=== PATIENT | female | born 1940 | race Caucasian/White ===

== ENCOUNTER 2017-05-02 09:19 | Emergency (ER) | payer MEDICARE ==
--- NOTE | 2017-05-02 09:46 | Emergency Department Record ---
History of Present Illness - General Chief complaint: Bite Insect/other Stated complaint: BUG BIT ON BACK Time Seen by Provider: 05/02/17 09:30 Source: Patient Mode of Arrival: Ambulatory Limitations: No limitations - History of Present Illness Initial comments: pt got a bite on her back on friday 96 hours ago from an unknown insect. it was red and has swelling which has improved. it was itchy. pt is worried that it was a tick bite. she did find a tick on her arm but it was not attached. complaint: Insect bite/sting Onset/Timin -: Days(s) Hx Tetanus Toxoid Vaccination: Yes Location: Back Consistency: Constant Improves with: None Worsens with: None Context: Other Associated symptoms: Denies other symptoms Treatments Prior to Arrival: None - Related Data Home Medications Medication Instructions Recorded Confirmed Last Taken Albuterol Sulfate [Ventolin Hfa] 2 puff INH ASDIR 04/28/16 05/02/17 04/28/16 11: 30 Beclomethasone Dipropionate [Qvar] 1 puff INH ASDIR 04/28/16 05/02/17 04/28/16 Budesonide/Formoterol Fumarate 2 puff INH ASDIR 04/28/16 05/02/17 04/27/16 [Symbicort 160-4.5 Mcg Inhaler] Montelukast Sodium [Singulair] 10 mg PO QHS 04/28/16 05/02/17 04/27/16 Previous Rx's Medication Instructions Recorded Cephalexin [Keflex] 500 mg PO QID #28 cap 05/02/17 Allergies Allergy/AdvReac Type Severity Reaction Status Date / Time No Known Drug Allergies Allergy Verified 04/28/16 15:58 Travel Screening - Travel/Exposure Within Last 30 Days Have you traveled within the last 30 days?: No Review of Systems Reviewed: No additional complaints except as noted below Constitutional: Reports: As per HPI. Denies: Chills, Fever, Malaise, Night sweats, Weakness, Weight change Eyes: Reports: As per HPI. Denies: Eye discharge, Eye pain, Photophobia, Vision change ENT: Reports: As per HPI. Denies: Congestion, Dental pain, Ear pain, Epistaxis , Hearing loss, Throat pain Respiratory: Reports: As per HPI. Denies: Cough, Dyspnea, Hemoptysis, Stridor, Wheezes Cardiovascular: Reports: As per HPI. Denies: Arrhythmia, Chest pain, Dyspnea on exertion, Edema, Murmurs, Orthopnea, Palpitations, Paroxysmal nocturnal dyspnea, Rheumatic Fever, Syncope Endocrine: Reports: As per HPI. Denies: Fatigue, Heat or cold intolerance, Polydipsia, Polyuria Gastrointestinal: Reports: As per HPI. Denies: Abdominal pain, Constipation, Diarrhea, Hematemesis, Hematochezia, Melena, Nausea, Vomiting Genitourinary: Reports: As per HPI. Denies: Abnormal menses, Discharge, Dyspareunia, Dysuria, Frequency, Hematuria, Incontinence, Retention, Urgency Musculoskeletal: Reports: As per HPI. Denies: Arthralgia, Back pain, Gout, Joint swelling, Myalgia, Neck pain Skin: Reports: As per HPI. Denies: Bruising, Change in color, Change in hair/ nails, Lesions, Pruritus, Rash Neurological: Reports: As per HPI. Denies: Abnormal gait, Confusion, Headache, Numbness, Paresthesias, Seizure, Tingling, Tremors, Vertigo, Weakness Psychiatric: Reports: As per HPI. Denies: Anxiety, Auditory hallucinations, Depression, Homicidal thoughts, Suicidal thoughts, Visual hallucinations Hematological/Lymphatic: Reports: As per HPI. Denies: Anemia, Blood Clots, Easy bleeding, Easy bruising, Swollen glands Past Medical History - SOCIAL HISTORY Smoking Status: Never smoker - RESPIRATORY Hx Respiratory Disorders: Yes Hx Asthma: Yes - CARDIOVASCULAR Hx Cardio Disorders: No - NEURO Hx Neuro Disorders: No - GI Hx GI Disorders: No - Hx Genitourinary Disorders: No - ENDOCRINE Hx Endocrine Disorders: No - MUSCULOSKELETAL Hx Musculoskeletal Disorders: No - PSYCH Hx Psych Problems: No - HEMATOLOGY/ONCOLOGY Hx Hematology/Oncology Disorders: No Family Medical History Any Significant Family History?: No Physical Exam - General General Appearance: Alert, Oriented x3, Cooperative, No acute distress - Head Head exam: Normal inspection - Eye Eye exam: Normal appearance, PERRL, EOMI Pupils: Normal accommodation - ENT ENT exam: Normal exam, Mucous membranes moist, Normal external ear exam, Normal orophraynx Ear exam: Normal external inspection. negative: External canal tenderness Nasal Exam: Normal inspection. negative: Discharge, Sinus tenderness Mouth exam: Normal external inspection, Tongue normal Teeth exam: Normal inspection. negative: Dental caries Throat exam: Normal inspection. negative: Tonsillar erythema, Tonsillar exudate - Neck Neck exam: Normal inspection, Full ROM. negative: Tenderness - Respiratory Respiratory exam: Normal lung sounds bilaterally. negative: Respiratory distress - Cardiovascular Cardiovascular Exam: Regular rate, Normal rhythm, Normal heart sounds - GI/Abdominal GI/Abdominal exam: Soft, Normal bowel sounds. negative: Tenderness - Rectal Rectal exam: Deferred - exam: Deferred - Extremities Extremities exam: Normal inspection, Full ROM, Normal capillary refill. negative: Tenderness - Back Back exam: Reports: Normal inspection, Full ROM. Denies: Muscle spasm, Rash noted, Tenderness - Neurological Neurological exam: Alert, CN II-XII intact, Normal gait, Oriented X3 - Psychiatric Psychiatric exam: Normal affect, Normal mood - Skin Skin exam: Dry, Intact, Normal color, Warm Type of lesion: Bite/sting Distribution of rash: Back Course Vital Signs 05/02/17 09:22 Temperature 98.0 F Pulse Rate 93 H Respiratory 18 Rate Blood Pressure 118/96 Pulse Ox 98 - Reevaluation(s) Reevaluation #1: 05/02/17 09:46 pt was reassured that 1. it was unlikely to be a tick bite 2. that if it was it would be very unlikely the deer tick that carries lyme 3. she is out of the 72hr window for prophylaxis anyhow. it is mildly red and i will cover for secondary infection 05/02/17 09:48 Disposition Disposition: Discharge Clinical Impression: Insect bite Qualifiers: Encounter type: initial encounter Qualified Code(s): W57.XXXA - Bitten or stung by nonvenomous insect and other nonvenomous arthropods, initial encounter Disposition: Home, Self-Care Condition: (1) Good Instructions: Insect Bite or Sting (ED) Additional Instructions: follow up with family doctor. return sooner if worse. Prescriptions: Cephalexin [Keflex] 500 mg PO QID #28 cap Forms: Patient Portal Access Quality - Quality Measures Quality Measures: N/A - Blood Pressure Screening Blood Pressure Classification: Hypertensive Reading Systolic Measurement: 118 Diastolic Measurement: 96 Screening for High Blood Pressure: < Normal BP, F/U Not Required > [G8783] Normal BP Follow-up Interventions: No follow-up required
== END 2017-05-02 09:59 | disposition home or self-care (01) ==
LOC: ER 09:19
DX: S20.462A Insect bite (nonvenomous) of left back wall of thorax, initial encounter (principal); W57.XXXA Bitten or stung by nonvenomous insect and other nonvenomous arthropods, initial encounter
CPT/HCPCS: 99282

== ENCOUNTER 2017-06-15 14:41 | Emergency (ER) | payer MEDICARE ==
--- NOTE | 2017-06-15 15:21 | Emergency Department Record ---
History of Present Illness - General Chief Complaint: Laceration(s) Stated Complaint: LACERATION ON LEFT HAND Time Seen by Provider: 06/15/17 14:55 Source: Patient, Family Mode of Arrival: Ambulatory Limitations: No limitations - History of Present Illness Initial Commments: 77 yo female presents with a laceration to the left hand. She was cleaning out the inside of a drinking glass and sliced her hand. The glass was not broken and there were no loose pieces of glass. No numbness, tingling, weakness or loss of function. Unknown last tetanus. -: Hour(s) Extremity Location: Left: Hand Place: Home Context: Accidental, Sharp object use Associated Symptoms: None - [place] Coma Scale Eye Response: (4) Open spontaneously Motor Response: (6) Obeys commands Verbal Response: (5) Oriented Berta Total: 15 - Related Data Hx Tetanus Toxoid Vaccination: Yes Allergies Allergy/AdvReac Type Severity Reaction Status Date / Time No Known Drug Allergies Allergy Verified 06/15/17 15:00 Review of Systems Constitutional: Denies: Chills, Fever, Malaise, Weakness Eyes: Denies: Eye discharge ENT: Denies: Congestion Respiratory: Denies: Cough Cardiovascular: Denies: Chest pain Endocrine: Denies: Fatigue Gastrointestinal: Denies: Abdominal pain, Diarrhea, Nausea, Vomiting Genitourinary: Denies: Dysuria, Urgency Musculoskeletal: Denies: Arthralgia, Back pain, Myalgia Skin: Reports: As per HPI, Other Neurological: Denies: Confusion, Headache, Numbness, Tremors, Weakness Psychiatric: Denies: Anxiety Hematological/Lymphatic: Denies: Blood Clots, Easy bleeding, Easy bruising, Swollen glands Past Medical History - SOCIAL HISTORY Smoking Status: Never smoker - RESPIRATORY Hx Respiratory Disorders: Yes Hx Asthma: Yes - CARDIOVASCULAR Hx Cardio Disorders: No - NEURO Hx Neuro Disorders: No - GI Hx GI Disorders: No - Hx Genitourinary Disorders: No - ENDOCRINE Hx Endocrine Disorders: No - MUSCULOSKELETAL Hx Musculoskeletal Disorders: No - PSYCH Hx Psych Problems: No - HEMATOLOGY/ONCOLOGY Hx Hematology/Oncology Disorders: No Physical Exam - General General Appearance: Alert, Oriented x3, Cooperative, No acute distress Limitations: No limitations - Head Head exam: Normal inspection - Eye Eye exam: Normal appearance - ENT ENT exam: Normal exam Ear exam: Normal external inspection Nasal Exam: Normal inspection Mouth exam: Normal external inspection Teeth exam: Normal inspection - Neck Neck exam: Normal inspection - Cardiovascular Cardiovascular Exam: Regular rate, Normal rhythm, Normal heart sounds Peripheral Pulses: 1+: Radial (L) - Rectal Rectal exam: Deferred - exam: Deferred - Extremities Image of Hand: 1 - clean, linear 3cm laceration, no FB, no visible tendon injury - Neurological Neurological exam: Alert, Oriented X3 - Psychiatric Psychiatric exam: Normal affect, Normal mood - Skin Type of lesion: Laceration Course - Reevaluation(s) Reevaluation #1: PROCEDURE Laceration repair Lidocaine 1% local Betadine Prep Shur Clens and NS wash with irrigation Prolene 4-0 Suture #8 Irrigation copiously with NS 06/15/17 14:59 Disposition Disposition: Discharge Clinical Impression: Hand laceration Qualifiers: Encounter type: initial encounter Foreign body presence: without foreign body Laterality: left Qualified Code(s): S61.412A - Laceration without foreign body of left hand, initial encounter Disposition: Home, Self-Care Condition: (1) Good Instructions: Laceration (ED) Additional Instructions: Keep dry and clean Return immediately if red, warm, swollen or any new concerns Return in 8 days for suture removal Forms: Patient Portal Access Time of Disposition: 15:22 Quality - Quality Measures Quality Measures: N/A - Blood Pressure Screening Does Patient Have Any of the Following: No Systolic Measurement: ~ Screening for High Blood Pressure: < Pre-Hypertensive BP, F/U Documented > [ G8950] Pre-Hypertensive Follow-up Interventions: Referral to alternative/primary care provider.
[2017-06-15] MEDS: Diph,Pert(Acell),Tet Vac 0.5 ML SYR IM ONE (15:28)
== END 2017-06-15 15:34 | disposition home or self-care (01) ==
LOC: ER 14:41
DX: S61.412A Laceration without foreign body of left hand, initial encounter (principal); W25.XXXA Contact with sharp glass, initial encounter; Y93.G1 Activity, food preparation and clean up; Y92.000 Kitchen of unspecified non-institutional (private) residence as the place of occurrence of the external cause
CPT/HCPCS: 12002; 90715; 96372; 99283

== ENCOUNTER 2017-06-24 08:45 | Emergency (ER) | payer MEDICARE ==
--- NOTE | 2017-06-24 09:00 | Emergency Department Record ---
History of Present Illness - General Chief complaint: Extremity Problem Stated complaint: HAND INFECTION Time Seen by Provider: 06/24/17 08:49 Source: Patient, Family Mode of Arrival: Ambulatory Limitations: No limitations - History of Present Illness Initial comments: 77 yo female presents with concerns about the healing of her hand laceration. She originally cut her hand on the sharp edge of a glass on 06/15. She was seen in the [facility] care on 06/17 and started on Keflex for redness. No fevers. She has full ROM. No current drainage. No numbness or tingling. MD Complaint: Extremity pain, Extremity swelling -: Days(s) (9) Location: Left Radiation: None Quality: Aching Consistency: Constant Improves with: Nothing Worsens with: Nothing Associated Symptoms: Rash - Related Data Previous Rx's Medication Instructions Recorded Clindamycin HCl 300 mg PO QID #28 capsule 06/24/17 Allergies Allergy/AdvReac Type Severity Reaction Status Date / Time No Known Drug Allergies Allergy Unverified 06/17/17 13:58 Review of Systems Constitutional: Denies: Chills, Fever, Malaise, Weakness Eyes: Denies: Eye discharge ENT: Denies: Congestion, Throat pain Respiratory: Denies: Cough Cardiovascular: Denies: Chest pain, Syncope Endocrine: Denies: Fatigue Gastrointestinal: Denies: Abdominal pain, Diarrhea, Nausea, Vomiting Genitourinary: Denies: Dysuria, Urgency Musculoskeletal: Denies: Arthralgia, Back pain, Myalgia Skin: Reports: As per HPI, Change in color, Rash. Denies: Bruising Neurological: Denies: Confusion, Headache, Numbness Psychiatric: Denies: Anxiety Hematological/Lymphatic: Denies: Blood Clots, Easy bleeding, Easy bruising Past Medical History - SOCIAL HISTORY Smoking Status: Never smoker - RESPIRATORY Hx Respiratory Disorders: Yes Hx Asthma: Yes - CARDIOVASCULAR Hx Cardio Disorders: No - NEURO Hx Neuro Disorders: No - GI Hx GI Disorders: No - Hx Genitourinary Disorders: No - ENDOCRINE Hx Endocrine Disorders: No - MUSCULOSKELETAL Hx Musculoskeletal Disorders: No - PSYCH Hx Psych Problems: No - HEMATOLOGY/ONCOLOGY Hx Hematology/Oncology Disorders: No Physical Exam - General General Appearance: Alert, Oriented x3, Cooperative, No acute distress Limitations: No limitations - Head Head exam: Normal inspection - Eye Eye exam: Normal appearance, PERRL - ENT ENT exam: Normal exam Ear exam: Normal external inspection Nasal Exam: Normal inspection Mouth exam: Normal external inspection - Neck Neck exam: Normal inspection - Cardiovascular Cardiovascular Exam: Regular rate, Normal rhythm, Normal heart sounds Peripheral Pulses: 2+: Radial (L) - Rectal Rectal exam: Deferred - exam: Deferred - Extremities Extremities exam: Full ROM, Normal capillary refill Image of Hand: 1 - incision is intact, no pus, minimal erythema, no swelling, full extension of the fingers, full flexion. - Neurological Neurological exam: Alert, Oriented X3. negative: Motor sensory deficit, Normal gait - Psychiatric Psychiatric exam: Normal affect, Normal mood. negative: Agitated, Anxious - Skin Skin exam: Dry, Erythema, Intact, Warm Course - Reevaluation(s) Reevaluation #1: The incision is healing with intact wound margins No pus expressed The area was cleaned with Shurclens and and scabs or superficial debris removed Very faint erythema The patient will be changed to Clindamycin and follow up on Friday in the ED for a recheck She is to return sooner if worse or any new concerns 06/24/17 09:08 Disposition Disposition: Discharge Clinical Impression: Hand laceration Qualifiers: Encounter type: initial encounter Laterality: left Cellulitis Qualifiers: Site of cellulitis: extremity Site of cellulitis of extremity: upper extremity Laterality: left Qualified Code(s): L03.114 - Cellulitis of left upper limb Disposition: Home, Self-Care Condition: (1) Good Instructions: Cellulitis (ED) Additional Instructions: Return if you have fever, increased redness, pain, swelling, pus or concerns Follow up on Friday in the ED for wound evaluation for possible suture removal Prescriptions: Clindamycin HCl 300 mg PO QID #28 capsule Forms: Patient Portal Access Time of Disposition: 09:11 Quality - Quality Measures Quality Measures: N/A - Blood Pressure Screening Does Patient Have Any of the Following: No Blood Pressure Classification: Hypertensive Reading Systolic Measurement: 146 Diastolic Measurement: 79 Screening for High Blood Pressure: < Pre-Hypertensive BP, F/U Documented > [ G8950] Pre-Hypertensive Follow-up Interventions: Referral to alternative/primary care provider.
[2017-06-24] MEDS ORDERED: CLINDAMYCIN 150 MG CAP PO ONE (09:06)
== END 2017-06-24 09:26 | disposition home or self-care (01) ==
LOC: ER 08:45
DX: L03.114 Cellulitis of left upper limb (principal)
CPT/HCPCS: 99282

== ENCOUNTER 2017-06-27 08:20 | Emergency (ER) | payer MEDICARE ==
--- NOTE | 2017-06-27 08:46 | Emergency Department Record ---
History of Present Illness - General Chief Complaint: Suture removal Stated Complaint: SUTURE REMOVAL Time Seen by Provider: 06/27/17 08:24 Source: Patient, Old records reviewed Mode of arrival: Ambulatory Limitations: No limitations - History of Present Illness Initial Comments: The patient is here for suture removal. She sustained a L dorsal hand laceration 12 days ago and was sutured here. The patient did develop a hand cellulitis and is still on Clindamycin which was prescribed from the . There also has been the development of some dorsal hand swelling which is presumed to be from the infection. The patient states the infection is much improved. Complaint: Suture/staple removal Onset/Timin -: Days(s) Initial Visit For: Laceration Returns Today for: Staple/stitch removal Symptoms Since Prior Visit: No new symptoms Associated Symptoms: None - Related Data Previous Rx's Medication Instructions Recorded Clindamycin HCl 300 mg PO QID #28 capsule 06/24/17 Allergies Allergy/AdvReac Type Severity Reaction Status Date / Time No Known Drug Allergies Allergy Unverified 06/17/17 13:58 Travel Screening - Travel/Exposure Within Last 30 Days Have you traveled within the last 30 days?: No - Travel/Exposure Within Last Year Have you traveled outside the [place] in the last year?: No - Additonal Travel Details Have you been exposed to anyone with a communicable illness?: No - Travel Symptoms Symptom Screening: None Review of Systems Constitutional: Denies: Chills, Fever Past Medical History - SOCIAL HISTORY Smoking Status: Never smoker Alcohol Use: None Drug Use: None - RESPIRATORY Hx Respiratory Disorders: Yes Hx Asthma: Yes - CARDIOVASCULAR Hx Cardio Disorders: No - NEURO Hx Neuro Disorders: No - GI Hx GI Disorders: No - Hx Genitourinary Disorders: No - ENDOCRINE Hx Endocrine Disorders: No - MUSCULOSKELETAL Hx Musculoskeletal Disorders: No - PSYCH Hx Psych Problems: No - HEMATOLOGY/ONCOLOGY Hx Hematology/Oncology Disorders: No Family Medical History Any Significant Family History?: No Physical Exam - General General Appearance: Alert, Cooperative, No acute distress - Extremities Extremities exam: Full ROM, Tenderness (There is tenderness to the proximal dorsal hand proximal to the hand laceration. The laceration appears healed and without tenderness or erythema.). negative: Normal inspection Image of Hand: 1 - Area of edema and mild tenderness but no redness or warmth. 2 - Healed hand lac. Course Vital Signs 06/27/17 08:21 Temperature 97.8 F Pulse Rate 90 Respiratory 18 Rate Blood Pressure 148/59 Pulse Ox 97 - Reevaluation(s) Reevaluation #1: The patient is doing very well at this time. Her sutures were removed and steri strips applied. She is instructed to see her PCP early next week for recheck of the hand. 06/27/17 9:00 Medical Decision Making - Data Complexity MDM Data: X-Ray Ordered and/or Reviewed - Radiology Data Radiology results: Report reviewed (L hand: Arthritis, with no acute changes.) Disposition Disposition: Discharge Clinical Impression: Encounter for removal of sutures Disposition: Home, Self-Care Condition: (1) Good Instructions: Stitches Removal (ED) Additional Instructions: Continue the oral antibiotics as directed. Please see your PCP early next week for recheck. Return to the ER for any problems, pain, or increased swelling. Forms: Patient Portal Access Time of Disposition: 09:30 Quality - Quality Measures Quality Measures: N/A - Blood Pressure Screening View Details: Yes Does Patient Have Any of the Following: No Blood Pressure Classification: Pre-Hypertensive BP Reading Systolic Measurement: 135 Diastolic Measurement: 71 Screening for High Blood Pressure: < Pre-Hypertensive BP, F/U Documented > [ G8950] Pre-Hypertensive Follow-up Interventions: Referral to alternative/primary care provider.
--- NOTE | 2017-06-27 10:36 | Emergency Department Record ---
History of Present Illness - General Chief Complaint: Suture removal Stated Complaint: SUTURE REMOVAL Time Seen by Provider: 06/27/17 08:24 Source: Patient, Old records reviewed Mode of arrival: Ambulatory Limitations: No limitations - History of Present Illness Onset/Timin -: Days(s) Initial Visit For: Laceration Returns Today for: Staple/stitch removal Symptoms Since Prior Visit: No new symptoms Associated Symptoms: None - Related Data Previous Rx's Medication Instructions Recorded Clindamycin HCl 300 mg PO QID #28 capsule 06/24/17 Allergies Allergy/AdvReac Type Severity Reaction Status Date / Time No Known Drug Allergies Allergy Unverified 06/17/17 13:58 Travel Screening - Travel/Exposure Within Last 30 Days Have you traveled within the last 30 days?: No - Travel/Exposure Within Last Year Have you traveled outside the [place] in the last year?: No - Additonal Travel Details Have you been exposed to anyone with a communicable illness?: No - Travel Symptoms Symptom Screening: None Review of Systems Constitutional: Denies: Chills, Fever Past Medical History - SOCIAL HISTORY Smoking Status: Never smoker Alcohol Use: None Drug Use: None - RESPIRATORY Hx Respiratory Disorders: Yes Hx Asthma: Yes - CARDIOVASCULAR Hx Cardio Disorders: No - NEURO Hx Neuro Disorders: No - GI Hx GI Disorders: No - Hx Genitourinary Disorders: No - ENDOCRINE Hx Endocrine Disorders: No - MUSCULOSKELETAL Hx Musculoskeletal Disorders: No - PSYCH Hx Psych Problems: No - HEMATOLOGY/ONCOLOGY Hx Hematology/Oncology Disorders: No Family Medical History Any Significant Family History?: No Physical Exam - General Limitations: No limitations - Extremities Image of Hand: 1 - Healed laceration. Error in location from original chart today. Course Vital Signs 06/27/17 06/27/17 08:21 09:37 Temperature 97.8 F 97.8 F Pulse Rate 90 88 Respiratory 18 16 Rate Blood Pressure 148/59 135/71 Pulse Ox 97 95 Disposition Clinical Impression: Encounter for removal of sutures Disposition: Home, Self-Care Condition: (1) Good Instructions: Stitches Removal (ED) Additional Instructions: Continue the oral antibiotics as directed. Please see your PCP early next week for recheck. Return to the ER for any problems, pain, or increased swelling. Forms: Patient Portal Access Quality - Quality Measures Quality Measures: N/A - Blood Pressure Screening View Details: Yes Does Patient Have Any of the Following: No Blood Pressure Classification: Pre-Hypertensive BP Reading Systolic Measurement: 135 Diastolic Measurement: 71 Screening for High Blood Pressure: < Pre-Hypertensive BP, F/U Documented > [ G8950] Pre-Hypertensive Follow-up Interventions: Referral to alternative/primary care provider.
--- NOTE | 2017-06-28 08:10 | RADIOLOGY REPORT ---
EXAM: HAND, LEFT 3 VIEWS HISTORY: INJURY. TECHNIQUE: Three views of the left hand were performed. FINDINGS: Severe osteopenia. There is severe degenerative change of the first carpometacarpal joint space. There is moderate degenerative change of the proximal and distal interphalangeal joint space of all digits. No evidence of fracture. IMPRESSION: 1. SEVERE DEGENERATIVE CHANGE OF THE FIRST CARPOMETACARPAL JOINT SPACE. MODERATE DEGENERATIVE CHANGE OF THE PROXIMAL AND DISTAL INTERPHALANGEAL JOINT SPACES. 2. SEVERE UNDERLYING OSTEOPENIA. JOB NUMBER: [id number] [facility]
== END 2017-06-27 09:37 | disposition home or self-care (01) ==
LOC: ER 08:20
DX: G89.11 Acute pain due to trauma (principal); M79.642 Pain in left hand; Z48.02 Encounter for removal of sutures
CPT/HCPCS: 99283

== ENCOUNTER 2017-12-20 10:20 | Observation (INO) | payer MEDICARE ==
[2017-12-20] MEDS ORDERED: IPRATROPIUM/ALBUTEROL (0.5MG/3MG) NEB INH ONE (10:37)
[2017-12-20] MEDS ORDERED: METHYLPREDNISOLONE PF 125MG/VIAL IVP ONE (10:39)
[2017-12-20 11:02] LABS: HEMATOCRIT 43.7 % (35.0-47.0); MEAN CELL VOLUME 88.1 fl (81-97); MEAN CORPUSCULAR HEMOGLOBIN 28.2 pg (27-33); MEAN PLATELET VOLUME 9.6 fl (7.4-10.4); PLATELET COUNT 200 K/uL (130-400); RED BLOOD COUNT 4.96 M/uL (3.80-5.40); RED CELL DISTRIBUTION WIDTH 13.6 % (11.5-14.5); WHITE BLOOD COUNT W/O DIFF 6.3 K/uL (4.2-12.2)
[2017-12-20 11:11] LABS: BLOOD UREA NITROGEN 12 mg/dL (8-23); CREATININE 0.5 mg/dL (0.5-0.9); EST GLOMERULAR FILTRATION RATE > 60 mL/min
--- NOTE | 2017-12-20 11:12 | Emergency Department Record ---
History of Present Illness - General Chief Complaint: Shortness of breath Stated Complaint: JAM Time Seen by Provider: 12/20/17 10:26 Source: Patient Mode of Arrival: Ambulatory Limitations: No limitations - History of Present Illness Initial Comments: The patient is here due to a 4-5 day hx of cough, congestion and now SOB. She does have a hx of asthma and feels the infection has triggered her asthma. The patient has had to stay in the hospital once for her asthma. She denies any CP, fever, chills, or sputum production. MD Complaint: Cough, Shortness of breath Onset/Timin -: Days(s) Improves With: Nothing Worsens With: Nothing Known History Of: Asthma Associated Symptoms: Cough Treatments Prior to Arrival: Bronchodilator - Related Data Allergies Allergy/AdvReac Type Severity Reaction Status Date / Time No Known Drug Allergies Allergy Verified 12/20/17 10:32 Travel Screening - Travel/Exposure Within Last 30 Days Have you traveled within the last 30 days?: Yes Location Detail:: [place] - Travel Symptoms Symptom Screening: None Review of Systems Constitutional: Denies: Chills, Fever ENT: Reports: Congestion Respiratory: Reports: Cough, Dyspnea. Denies: Hemoptysis Cardiovascular: Denies: Chest pain Past Medical History - SOCIAL HISTORY Smoking Status: Never smoker Alcohol Use: None Drug Use: None - RESPIRATORY Hx Respiratory Disorders: Yes Hx Asthma: Yes - CARDIOVASCULAR Hx Cardio Disorders: No - NEURO Hx Neuro Disorders: No - GI Hx GI Disorders: No - Hx Genitourinary Disorders: No - ENDOCRINE Hx Endocrine Disorders: No - MUSCULOSKELETAL Hx Musculoskeletal Disorders: No - PSYCH Hx Psych Problems: No - HEMATOLOGY/ONCOLOGY Hx Hematology/Oncology Disorders: No Family Medical History Any Significant Family History?: No Physical Exam - General General Appearance: Alert, Oriented x3, Cooperative, Mild distress - Head Head exam: Atraumatic, Normocephalic, Normal inspection - Eye Eye exam: Normal appearance, PERRL - ENT Throat exam: Normal inspection. negative: Tonsillar erythema, Tonsillar exudate - Neck Neck exam: Normal inspection, Full ROM. negative: Tenderness - Respiratory Respiratory exam: Wheezes (lower lobes only.). negative: Normal lung sounds bilaterally, Accessory muscle use, Chest wall tenderness, Decreased breath sounds, Rales, Respiratory distress, Rhonchi - Cardiovascular Cardiovascular Exam: Regular rate, Normal rhythm, Normal heart sounds - GI/Abdominal GI/Abdominal exam: Soft, Normal bowel sounds. negative: Tenderness - Extremities Extremities exam: Normal inspection, Full ROM, Normal capillary refill. negative: Tenderness Course Vital Signs 12/20/17 12/20/17 10:25 11:02 Temperature 98.3 F Pulse Rate 113 H 121 H Respiratory 20 19 Rate Blood Pressure 146/86 Pulse Ox 96 97 - Reevaluation(s) Reevaluation #1: The patient is doing a little better but is still coughing and has tight lungs at times. On exam her lungs still do have some wheezes at the bases but better aeration. The patient's RA O2 saturations are running 90-91% at times but then does improve to 96%. 12/20/17 12:00 Reevaluation #2: The patient is doing better but is still coughing with wheezes. Her O2 sats are now 96-97% on 2 liters of O2. Due to the persistent wheezes and rhonchi we will admit the patient overnight here at [facility]. I did discuss the case with Dr. Clarke and he does accept the patient to the hospital 12/20/17 13:51 Medical Decision Making - Data Complexity MDM Data: Labs Ordered and/or Reviewed, X-Ray Ordered and/or Reviewed, EKG Ordered and/or Reviewed - Lab Data Result diagrams: 12/20/17 10:45 12/20/17 10:50 - EKG Data EKG: No Acute Changes (ST at 108, Anteroseptal infarct, age ?.) - Radiology Data Radiology results: Report reviewed (CXR: small R effusion, O/W neg.) Disposition Disposition: Admit Clinical Impression: Asthmatic bronchitis with acute exacerbation Qualifiers: Asthma severity: unspecified severity Asthma persistence: unspecified Qualified Code(s): J45.901 - Unspecified asthma with (acute) exacerbation Disposition: Still a Patient at [facility] Decision to Admit: Admit from ER Decision to Admit Date: 12/20/17 Decision to Admit Time: 13:53 Accepting Physician: Vince Time Discussed w/Accepting Physician: 13:53 Condition: (2) Stable Time of Disposition: 13:53 Quality - Quality Measures Quality Measures: N/A - Blood Pressure Screening View Details: Yes Does Patient Have Any of the Following: No Blood Pressure Classification: Pre-Hypertensive BP Reading Systolic Measurement: 146 Diastolic Measurement: 86 Screening for High Blood Pressure: < Pre-Hypertensive BP, F/U Documented > [ G8950] Pre-Hypertensive Follow-up Interventions: Referral to alternative/primary care provider.
[2017-12-20 11:14] LABS: GLUCOSE,RANDOM 142 mg/dL (74-109)
[2017-12-20 11:17] LABS: CREATINE PHOSPHOKINASE 126 U/L (26-192)
[2017-12-20] MEDS ORDERED: 0.9 % SODIUM CHLORIDE 1,000 ML BAG IV ONE (11:25)
[2017-12-20] MEDS ORDERED: PROMETHAZINE W/CODEINE 10ML UD PO ONE (11:32)
[2017-12-20] MEDS ORDERED: LEVOFLOXACIN 500 MG TABLET PO ONE (11:45)
[2017-12-20 11:54] LABS: INFLUENZA A NEGATIVE (NEGATIVE); INFLUENZA B NEGATIVE (NEGATIVE)
[2017-12-20] MEDS ORDERED: ALBUTEROL SULFATE (0.083%) 2.5 MG/3 ML NEB INH ONE ×2 (11:56→12:44)
[2017-12-20 12:02] LABS: CKMB 2.8 ng/mL (<3.77)
[2017-12-20] MEDS ORDERED: ACETAMINOPHEN 500 MG TABLET PO PRN (15:03)
[2017-12-20] MEDS: IPRATROPIUM/ALBUTEROL (0.5MG/3MG) NEB INH SCH ×4 (15:10→21:22)
--- NOTE | 2017-12-20 21:06 | History & Physical ---
History of Present Illness - Date of Service Date of Service for History & Physical: 12/21/17 - History of Present Illness Admitting Diagnosis: 1. Acute Asthmatic Bronchitis with Acute Exacerbation. History of Present Illness: Mrs. Miller is a 77 y/o female presenting with a 5 day history of congestion non-productive cough and increasing difficulty breathing. She has not had any fevers, chills or headaches. The patient has a history of mild intermittent asthma and reports infrequent exacerbations requiring bronchodilator use. She denies sick contacts or recent travel and she has had her seasonal influenza vaccine. On admission to the ED the patient was noted to be mildly hypoxic with saturations in the low 90s to high 80s. She has four respiratory treatments but still appear to have some mild respiratory distress. She denied chest pain, headaches, fever or chills. Travel Screening - Travel/Exposure Within Last 30 Days Have you traveled within the last 30 days?: Yes Location Detail:: [place] - Travel/Exposure Within Last Year Have you traveled outside the [place] in the last year?: No - Additonal Travel Details Have you been exposed to anyone with a communicable illness?: No - Travel Symptoms Symptom Screening: None Review of Systems Constitutional: Denies: Chills, Fever ENT: Reports: Congestion Respiratory: Reports: Cough, Dyspnea. Denies: Hemoptysis Cardiovascular: Denies: Chest pain Past Medical History - SOCIAL HISTORY Smoking Status: Never smoker Alcohol Use: None Drug Use: None - RESPIRATORY Hx Respiratory Disorders: Yes Hx Asthma: Yes - CARDIOVASCULAR Hx Cardio Disorders: No - NEURO Hx Neuro Disorders: No - GI Hx GI Disorders: No - Hx Genitourinary Disorders: No - ENDOCRINE Hx Endocrine Disorders: No - MUSCULOSKELETAL Hx Musculoskeletal Disorders: No - PSYCH Hx Psych Problems: No - HEMATOLOGY/ONCOLOGY Hx Hematology/Oncology Disorders: No Family Medical History Any Significant Family History?: No H&P Meds/Allergies - Allergies Allergies: Allergies Allergy/AdvReac Type Severity Reaction Status Date / Time No Known Drug Allergies Allergy Verified 12/20/17 10:32 - Active Medications Active Medications: Current Medications Acetaminophen (Tylenol 500mg Tab) 650 mg PO Q6H PRN PRN Reason: PAIN/TEMP Last Admin: 12/20/17 20:52 Dose: 650 mg Albuterol/Ipratropium (Duoneb) 3 ml INH RESP.Q4H.[place] Last Admin: 12/20/17 17:08 Dose: 3 ml Levofloxacin (Levaquin Tab) 750 mg PO Q48H [facility] Methylprednisolone Sodium Succinate (Solu-Medrol) 60 mg IVP DAILY [facility] Physical Exam - Vital Signs Vital Signs: Vital Signs - Last 24 Hrs Temp Pulse Pulse Resp BP Pulse Ox 12/20/17 18:16 95 12/20/17 17:10 99 H 17 95 12/20/17 15:28 16 12/20/17 15:03 97.9 F 103 H 18 125/68 96 - General General Appearance: Alert, Oriented x3, Cooperative, Mild distress Limitations: No limitations - Head Head exam: Atraumatic, Normocephalic, Normal inspection - Eye Eye exam: Normal appearance, PERRL - ENT Throat exam: Normal inspection. negative: Tonsillar erythema, Tonsillar exudate - Neck Neck exam: Normal inspection, Full ROM. negative: Tenderness - Respiratory Respiratory exam: Wheezes (lower lobes only.). negative: Normal lung sounds bilaterally, Accessory muscle use, Chest wall tenderness, Decreased breath sounds, Rales, Respiratory distress, Rhonchi - Cardiovascular Cardiovascular Exam: Regular rate, Normal rhythm, Normal heart sounds - GI/Abdominal GI/Abdominal exam: Soft, Normal bowel sounds. negative: Tenderness - Extremities Extremities exam: Normal inspection, Full ROM, Normal capillary refill. negative: Tenderness Results - Labs Result Diagrams: 12/20/17 10:45 12/20/17 10:50 VTE H&P Assessment - Risk for VTE Risk for VTE: No Risk Level: Very Low Risk Assessment Date: 12/21/17 Risk Assessment Time: 09:39 VTE Orders Placed or Will Be Placed: No VTE Reason for No Prophylaxis: Not Indicated (patient ambulatory and has no risk factors ) Plan - Detailed Diagnosis and Plan (1) Asthmatic bronchitis with acute exacerbation Current Visit: Yes Status: Acute Qualifiers: Asthma severity: unspecified severity Asthma persistence: unspecified Qualified Code(s): J45.901 - Unspecified asthma with (acute) exacerbation Base Code: J45.901 - UNSPECIFIED ASTHMA WITH (ACUTE) EXACERBATION Comment: 3/4 - chest xray negative, labs WNL - oxygen to maintain sats > 92% - bronchodilator therapy Q4H, solumderol 60mg daily. Change to PO prednisone at discharge. - Levaquin 500mg daily x 5 days total. - peak flow measure (2) Full code status Current Visit: Yes Status: Acute Base Code: Z78.9 - OTHER SPECIFIED HEALTH STATUS - Disposition D/C home tomorrow if improvement in symptoms.
[2017-12-21] MEDS: IPRATROPIUM/ALBUTEROL (0.5MG/3MG) NEB INH SCH (05:52)
[2017-12-21] MEDS ORDERED: METHYLPREDNISOLONE PF 125MG/VIAL IVP SCH (10:00)
--- NOTE | 2017-12-21 11:49 | Discharge Summary ---
Providers Discharge Summary Date: 12/21/17 Date of admission: 12/20/17 14:47 Attending physician: MITESH DOTY Physical Exam - Vital Signs Vital Signs: Vital Signs - Last 24 Hrs Temp Pulse Pulse Resp BP Pulse Ox 12/21/17 06:41 97.7 F 92 H 18 135/68 97 12/21/17 05:52 86 20 98 12/20/17 21:22 88 20 98 12/20/17 21:00 83 18 12/20/17 18:16 95 12/20/17 17:10 99 H 17 95 12/20/17 15:28 16 12/20/17 15:03 97.9 F 103 H 18 125/68 96 - General General Appearance: Alert, Oriented x3, Cooperative, Mild distress Limitations: No limitations - Head Head exam: Atraumatic, Normocephalic, Normal inspection - Eye Eye exam: Normal appearance, PERRL - ENT Throat exam: Normal inspection. negative: Tonsillar erythema, Tonsillar exudate - Neck Neck exam: Normal inspection, Full ROM. negative: Tenderness - Respiratory Respiratory exam: negative: Normal lung sounds bilaterally, Accessory muscle use , Chest wall tenderness, Decreased breath sounds, Rales, Respiratory distress, Rhonchi - Cardiovascular Cardiovascular Exam: Regular rate, Normal rhythm, Normal heart sounds - GI/Abdominal GI/Abdominal exam: Soft, Normal bowel sounds. negative: Tenderness - Extremities Extremities exam: Normal inspection, Full ROM, Normal capillary refill. negative: Tenderness Hospitalization - Hospitalization Admission Diagnosis: 1. Acute Asthmatic Bronchitis with Acute Exacerbation. 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 - oxygen to maintain sats > 92% - bronchodilator therapy Q4H, solumderol 60mg daily. Change to PO prednisone at discharge. - Levaquin 500mg daily x 5 days total. - peak flow measure (2) Full code status Current Visit: Yes Status: Acute Base Code: Z78.9 - OTHER SPECIFIED HEALTH STATUS - Disposition D/C home tomorrow if improvement in symptoms. - Hospitalization Course Hospital Course: Mrs. Miller is a 77 y/o female presenting with a 5 day history of congestion non-productive cough and increasing difficulty breathing. She has not had any fevers, chills or headaches. The patient has a history of mild intermittent asthma and reports infrequent exacerbations requiring bronchodilator use. She denies sick contacts or recent travel and she has had her seasonal influenza vaccine. On admission to the ED the patient was noted to be mildly hypoxic with saturations in the low 90s to high 80s. She has four respiratory treatments but still appear to have some mild respiratory distress. She denied chest pain, headaches, fever or chills. addendum: the patient had recently traveled and returned from [facility] where she encountered a lot of dust from a nearby construction site. She also had sick contacts. Condition at Discharge: (2) Stable Discharge Medications - Discharge Medications Prescriptions: Levofloxacin [Levaquin] 750 mg PO DAILY 3 Days #3 tablet Prednisone [Prednisone 20Mg] 40 mg PO DAILY 3 Days #6 tab Home Medications: Ambulatory Orders Albuterol Sulfate [Ventolin Hfa] 2 puff INH ASDIR 04/28/16 [Last Taken 12/20/17] Budesonide/Formoterol Fumarate [Symbicort 160-4.5 Mcg Inhaler] 2 puff INH ASDIR 04/28/16 [Last Taken 12/20/17] Levofloxacin [Levaquin] 750 mg PO DAILY 3 Days #3 tablet 12/21/17 [Last Taken Unknown] Prednisone [Prednisone 20Mg] 40 mg PO DAILY 3 Days #6 tab 12/21/17 [Last Taken Unknown] Discharge Plan - Discharge Instructions Additional Instructions: - Follow up with [facility] for post-discharge check. Patient interested in pulmonary/ cardiology referral. The patient has no PCP. - Prednisone 40mg daily x 3 days - Levaquin 750mg daily x 3 days - Albuterol PRN, Symbicort BID and then back to daily use when symptoms resolve completely. Quality Measures - Quality Measures Quality Measures: Advance Directives, Documentation of Current Medications in Medical Record, Elder Maltreatment Screen and Follow-Up Plan, Screening for High Blood Pressure and F/U Documented - Current Medications Quality Measure: Measure #130: Documentation of Current Medications Documentation of Current Medications: <Current Medications Documented/Reviewed> [G5171] - Blood Pressure Screening Quality Measure: Screening for High Blood Pressure and Follow-Up Documented Does Patient Have Any of the Following: No Blood Pressure Classification: Pre-Hypertensive BP Reading Systolic Measurement: 146 Diastolic Measurement: 86 Screening for High Blood Pressure: < Pre-Hypertensive BP, F/U Documented > [ G8950] Pre-Hypertensive Follow-up Interventions: Follow-up with rescreen every year., Lifestyle modifications. Lifestyle Modification: Weight Reduction, Dietary Approaches to Stop Hypertension (DASH) Eating Plan - Advance Directives Quality Measure: Measure #47: Care Plan Advance Directives Established: No Advance Directives Information Provided To Patient: No Advance Directives on File: No Living Will: No Power of Manganese Breaker: No Advance Care Planning: <Care Plan/Decision Maker Not Decided; Discussed & Documented> [1125U] - Elder Abuse Suspicion Index Screening: Elder Abuse Suspicion Index Screening Rely on people for bathing, dressing, shopping, banking, etc: No Prevented from getting food, clothes, medication, etc: No Made to feel shamed or threatened by someone: No Forced to sign papers or use money against will: No Feel afraid, touched in ways not wanted or hurt physically: No Poor eye contact, withdrawn, malnourished, cuts or bruises: No Screening Result: Negative result EASI Reference Information: Ramon CHAMBERS, Juan C, Oriana D, Sofia Santamaria.Development and validation of a tool to assist physicians identification of elder abuse: The Elder Abuse Suspicion Index (EASI ). Journal of Elder Abuse and Neglect, 2008; 20 (3): 276-300. - Elder Maltreatment Screen Quality Measures: Elder Maltreatment Screen and Follow-Up Plan Elder Maltreatment Screen: <Negative, No Follow-Up Plan Required> [G8765]
[2017-12-22] MEDS ORDERED: LEVOFLOXACIN 500 MG TABLET PO SCH (06:00)
--- NOTE | 2017-12-22 07:20 | RADIOLOGY REPORT ---
EXAM: CHEST, TWO VIEWS HISTORY: DIFFICULTY BREATHING. TECHNIQUE: Frontal and lateral views of the chest were performed. FINDINGS: The heart size is normal. The lungs are hyperinflated. There is blunting of the right costophrenic angle. Findings are suggestive of a small pleural effusion. There is osteopenia. IMPRESSION: SMALL RIGHT PLEURAL EFFUSION, OTHERWISE NEGATIVE CHEST EXAMINATION. JOB NUMBER: [id number] MTDD
== END 2017-12-21 12:30 | disposition home or self-care (01) ==
LOC: ER 10:20 → MEDSURG 14:47
PROVIDERS: ADMIT Internal Medicine; ATTEND Internal Medicine
DX: J45.901 Unspecified asthma with (acute) exacerbation (principal); R06.02 Shortness of breath; R05 Cough
CPT/HCPCS: 99285 ×2; 96374; 82550; 82553; 80048; 87400; 84484; 85027; 71046; 94640 ×3; 94761; 94760; 93005; 93010; G0378 ×2; 99220; J2930; J7030; J7613

== ENCOUNTER 2017-12-22 13:48 | Observation (INO) | payer MEDICARE ==
[2017-12-22] MEDS ORDERED: LEVOFLOXACIN 500 MG TABLET PO ONE (14:11)
[2017-12-22] MEDS ORDERED: IPRATROPIUM/ALBUTEROL (0.5MG/3MG) NEB INH ONE (14:13)
[2017-12-22] MEDS ORDERED: METHYLPREDNISOLONE SOD 40MG/VIAL IVP ONE (14:23)
--- NOTE | 2017-12-22 14:23 | Emergency Department Record ---
History of Present Illness - General Chief Complaint: Shortness of breath Stated Complaint: JAM Time Seen by Provider: 12/22/17 14:07 Source: Patient Mode of Arrival: Ambulatory Limitations: No limitations - History of Present Illness Initial Comments: The patient is here due to a one day hx of cough, congestion and SOB. She was recently admitted to the hospital here at [facility] 2 days ago for asthma and left yesterday morning. The patient states she was doing very well until last evening when the SOB, cough, and congestion returned. There has been no fever, chills, vomiting, or chest pain but she has had chest pressure which she feels is due to her asthma. MD Complaint: Cough, Shortness of breath Onset/Timin -: Days(s) Worsens With: Nothing Associated Symptoms: Sputum production Treatments Prior to Arrival: Bronchodilator - Related Data Previous Rx's Medication Instructions Recorded Levofloxacin [Levaquin] 750 mg PO DAILY 3 Days #3 tablet 12/21/17 Prednisone [Prednisone 20Mg] 40 mg PO DAILY 3 Days #6 tab 12/21/17 Allergies Allergy/AdvReac Type Severity Reaction Status Date / Time No Known Drug Allergies Allergy Verified 12/20/17 10:32 Travel Screening - Travel/Exposure Within Last 30 Days Have you traveled within the last 30 days?: No - Travel/Exposure Within Last Year Have you traveled outside the [place] in the last year?: No - Additonal Travel Details Have you been exposed to anyone with a communicable illness?: No - Travel Symptoms Symptom Screening: None Review of Systems Constitutional: Denies: Chills, Fever Eyes: Denies: Eye discharge ENT: Reports: Congestion Respiratory: Reports: Cough, Dyspnea, Wheezes. Denies: Hemoptysis Past Medical History - SOCIAL HISTORY Smoking Status: Never smoker Alcohol Use: None Drug Use: None - RESPIRATORY Hx Respiratory Disorders: Yes Hx Asthma: Yes - CARDIOVASCULAR Hx Cardio Disorders: No - NEURO Hx Neuro Disorders: No - GI Hx GI Disorders: No - Hx Genitourinary Disorders: No - ENDOCRINE Hx Endocrine Disorders: No - MUSCULOSKELETAL Hx Musculoskeletal Disorders: No - PSYCH Hx Psych Problems: No - HEMATOLOGY/ONCOLOGY Hx Hematology/Oncology Disorders: No Family Medical History Any Significant Family History?: No Hx Cancer: Mother Hx Heart Disease: Father Physical Exam - General General Appearance: Alert, Oriented x3, Cooperative, Mild distress (due to JAM) - Head Head exam: Atraumatic, Normocephalic, Normal inspection - Eye Eye exam: Normal appearance, PERRL - ENT Throat exam: Normal inspection - Neck Neck exam: Normal inspection, Full ROM. negative: Tenderness - Respiratory Respiratory exam: Decreased breath sounds, Respiratory distress (very mild.), Wheezes (at the bases.). negative: Normal lung sounds bilaterally, Rales - Cardiovascular Cardiovascular Exam: Regular rate, Normal rhythm, Normal heart sounds - GI/Abdominal GI/Abdominal exam: Soft, Normal bowel sounds. negative: Tenderness - Extremities Extremities exam: Normal inspection, Full ROM, Normal capillary refill. negative: Tenderness - Back Back exam: Reports: Normal inspection - Neurological Neurological exam: Alert, Normal gait. negative: Abnormal gait, Motor sensory deficit Course Vital Signs 12/22/17 13:52 Temperature 98.3 F Pulse Rate 104 H Respiratory 20 Rate Blood Pressure 149/112 Pulse Ox 93 L - Reevaluation(s) Reevaluation #1: The patient is doing better after the breathing treatments, Solumedrol and Levaquin. She is still coughing and bronchospastic at times with decreasing oxygen saturations to the low 90's. Due to that fact and that her Ck-MB was very minimally abnormal I did discuss the case with Dr. Clarke and he would like to admit the patient back into the hospital overnight. We will obtain a cardiology consult tomorrow and order repeat cardiac enzymes along with aggressive pulmonary therapy. 12/22/17 15:47 Medical Decision Making - Data Complexity MDM Data: Labs Ordered and/or Reviewed, X-Ray Ordered and/or Reviewed, EKG Ordered and/or Reviewed - Lab Data Result diagrams: 12/22/17 14:15 12/22/17 14:15 - EKG Data -: EKG Interpreted by [place] EKG: No Acute Changes, Unchanged From Previous - Radiology Data Radiology results: Report reviewed (CXR: COPD, Bilateral small effusions R>L.) Disposition Disposition: Admit Clinical Impression: Asthmatic bronchitis with acute exacerbation Qualifiers: Asthma severity: unspecified severity Asthma persistence: unspecified Qualified Code(s): J45.901 - Unspecified asthma with (acute) exacerbation Disposition: Still a Patient at [facility] Decision to Admit: Admit from ER Decision to Admit Date: 12/22/17 Decision to Admit Time: 15:49 Accepting Physician: Vince Time Discussed w/Accepting Physician: 15:49 Condition: (2) Stable Time of Disposition: 15:49 Quality - Quality Measures Quality Measures: N/A - Blood Pressure Screening View Details: Yes Does Patient Have Any of the Following: No Blood Pressure Classification: Pre-Hypertensive BP Reading Systolic Measurement: 127 Diastolic Measurement: 73 Screening for High Blood Pressure: < Pre-Hypertensive BP, F/U Documented > [ G8950] Pre-Hypertensive Follow-up Interventions: Referral to alternative/primary care provider.
[2017-12-22 14:26] LABS: HEMATOCRIT 43.9 % (35.0-47.0); HEMOGLOBIN 14.3 gm/dl (11.6-16.0); MEAN CELL VOLUME 86.6 fl (81-97); MEAN CORPUSCULAR HEMOGLOBIN 28.2 pg (27-33); MEAN CORPUSCULAR HGB CONC 32.6 g/dl (32-36); MEAN PLATELET VOLUME 9.8 fl (7.4-10.4); PLATELET COUNT 271 K/uL (130-400); RED BLOOD COUNT 5.07 M/uL (3.80-5.40); RED CELL DISTRIBUTION WIDTH 13.5 % (11.5-14.5); WHITE BLOOD COUNT W/O DIFF 9.1 K/uL (4.2-12.2)
[2017-12-22 14:34] LABS: BLOOD UREA NITROGEN 18 mg/dL (8-23)
[2017-12-22 14:35] LABS: CREATININE 0.5 mg/dL (0.5-0.9); EST GLOMERULAR FILTRATION RATE > 60 mL/min
[2017-12-22 14:37] LABS: GLUCOSE,RANDOM 109 mg/dL (74-109)
[2017-12-22 14:40] LABS: CREATINE PHOSPHOKINASE 177 U/L (26-192)
[2017-12-22 14:42] LABS: CKMB 4.4 ng/mL (<3.77)
[2017-12-22] MEDS ORDERED: ALBUTEROL SULFATE (0.083%) 2.5 MG/3 ML NEB INH SCH (14:45)
[2017-12-22 14:46] LABS: PARTIAL THROMBOPLASTIN TIME 27.8 SECONDS (24.5-39.1); PROTHROMBIN TIME (PATIENT) 10.5 SECONDS (9.5-12.1)
[2017-12-22] MEDS ORDERED: PROMETHAZINE W/CODEINE 10ML UD PO ONE (15:45)
[2017-12-22] MEDS ORDERED: PROMETHAZINE W/CODEINE 10ML UD PO PRN (15:54)
[2017-12-22] MEDS: ASPIRIN 325 MG TAB ENTERIC-COATED PO SCH (17:16)
[2017-12-22] MEDS: IPRATROPIUM/ALBUTEROL (0.5MG/3MG) NEB INH SCH ×2 (17:33→21:42)
[2017-12-22] MEDS ORDERED: ACETAMINOPHEN 325 MG TAB PO PRN (17:35)
[2017-12-22 22:34] LABS: CKMB 3.9 ng/mL (<3.77)
[2017-12-23] MEDS: IPRATROPIUM/ALBUTEROL (0.5MG/3MG) NEB INH SCH ×4 (06:05→18:24)
--- NOTE | 2017-12-23 07:10 | RADIOLOGY REPORT ---
EXAM: CHEST, TWO VIEWS HISTORY: CHEST PAIN. TECHNIQUE: Frontal and lateral views of the chest were obtained. Comparison: 12/20/17 chest x-ray. FINDINGS: The heart size is normal. Mild elevation of the right hemidiaphragm with persistent small bilateral effusions, greater on the right. Underlying emphysema. Osteopenia. No pneumothorax. IMPRESSION: UNDERLYING EMPHYSEMA. SMALL BILATERAL EFFUSIONS, GREATER ON THE RIGHT. JOB NUMBER: [id number] MTDD
[2017-12-23 07:16] LABS: CKMB 2.9 ng/mL (<3.77)
[2017-12-23] MEDS: ASPIRIN 325 MG TAB ENTERIC-COATED PO SCH (09:22)
[2017-12-23] MEDS ORDERED: METHYLPREDNISOLONE PF 125MG/VIAL IVP SCH (10:00)
--- NOTE | 2017-12-23 12:10 | History & Physical ---
History of Present Illness - Date of Service Date of Service for History & Physical: 12/23/17 - History of Present Illness Admitting Diagnosis: 1. Acute Asthmatic Bronchitis with Hypoxia. History of Present Illness: Mrs. Miller is a 77 year-old female who presented to the ED on 03/06 with cough, congestion, and SOB that she was experiencing for one day at home. She was recently admitted to [facility] for 2 days with asthma- she was discharged home yesterday morning. She denied fever, chills, vomiting, and chest pain, but she dis complain of chest tightness/pressure that she feels is due to her asthma. Her history includes: mild intermittent asthma with infrequent exacerbations. She denies sick contacts or recent travel and she did receive her seasonal influenza vaccine. Upon admission to the ED, she had a persistent cough and her oxygen saturation was low 90s. Her chest xray showed underlying emphysema, small bilateral effusions, greater on the right. CBC with differential and CMP were unremarkable. Serial troponins were ordered and negative for elevation. Her CK -MB was mildly elevated at 4.4, so she was admitted for observation and cardiology consult for 12/23/17. Plan to continue aggressive pulmonary therapy, case monitor, repeat cardiac enzymes. 12/23/17: Pt. just returned from her chest CT. She states that her shortness of breath and cough has greatly improved with the nebulizer treatments here and she states that her chest tightness has also improved. Plan for cardiology consult today and will consider d/c this evening if cleared by cardiology. Will plan to d/c home with nebulizer. Travel Screening - Travel/Exposure Within Last 30 Days Have you traveled within the last 30 days?: No - Travel/Exposure Within Last Year Have you traveled outside the [place] in the last year?: No - Additonal Travel Details Have you been exposed to anyone with a communicable illness?: No - Travel Symptoms Symptom Screening: None Review of Systems Constitutional: Denies: Chills, Fever Eyes: Denies: Eye discharge ENT: Reports: Congestion Respiratory: Reports: Cough. Denies: Hemoptysis Past Medical History - SOCIAL HISTORY Smoking Status: Never smoker Alcohol Use: None Drug Use: None - RESPIRATORY Hx Respiratory Disorders: Yes Hx Asthma: Yes - CARDIOVASCULAR Hx Cardio Disorders: No - NEURO Hx Neuro Disorders: No - GI Hx GI Disorders: No - Hx Genitourinary Disorders: No - ENDOCRINE Hx Endocrine Disorders: No - MUSCULOSKELETAL Hx Musculoskeletal Disorders: No - PSYCH Hx Psych Problems: No - HEMATOLOGY/ONCOLOGY Hx Hematology/Oncology Disorders: No Family Medical History Any Significant Family History?: No Hx Cancer: Mother Hx Heart Disease: Father H&P Meds/Allergies - Allergies Allergies: Allergies Allergy/AdvReac Type Severity Reaction Status Date / Time No Known Drug Allergies Allergy Verified 12/20/17 10:32 - Home Medications Previous Rx's Medication Instructions Recorded Levofloxacin [Levaquin] 750 mg PO DAILY 3 Days #3 tablet 12/21/17 Prednisone [Prednisone 20Mg] 40 mg PO DAILY 3 Days #6 tab 12/21/17 - Active Medications Active Medications: Current Medications Acetaminophen (Tylenol 325mg) 650 mg PO Q6H PRN PRN Reason: PAIN/TEMP Albuterol/Ipratropium (Duoneb) 3 ml INH RESP.Q4H.WA [facility] Last Admin: 12/23/17 09:59 Dose: 3 ml Aspirin (Ecotrin (Ec)) 325 mg PO DAILY [facility] Last Admin: 12/23/17 09:22 Dose: 325 mg Levofloxacin (Levaquin Tab) 750 mg PO Q48H [facility] Methylprednisolone Sodium Succinate (Solu-Medrol) 60 mg IVP DAILY [facility] Last Admin: 12/23/17 09:22 Dose: 60 mg Promethazine HCl/Codeine (Phenergan W/Codeine) 5 ml PO Q4H PRN PRN Reason: COUGH Physical Exam - Vital Signs Vital Signs: Vital Signs - Last 24 Hrs Temp Pulse Pulse Resp BP BP Pulse Ox 12/23/17 10:00 75 17 98 12/23/17 07:51 16 12/23/17 07:00 97.9 F 71 16 137/71 98 12/23/17 06:05 84 20 97 12/23/17 03:00 98.1 F 70 16 132/74 100 12/22/17 23:11 98.0 F 85 16 128/70 97 12/22/17 21:42 84 20 97 12/22/17 21:00 18 12/22/17 19:03 98.4 F 100 H 18 148/66 94 L 12/22/17 18:10 83 17 97 12/22/17 17:55 95 12/22/17 17:11 98.1 F 106 H 20 132/74 95 - General General Appearance: Alert, Oriented x3, Cooperative, Mild distress (due to JAM) Limitations: No limitations - Head Head exam: Atraumatic, Normocephalic, Normal inspection - Eye Eye exam: Normal appearance, PERRL - ENT Throat exam: Normal inspection - Neck Neck exam: Normal inspection, Full ROM. negative: Tenderness - Respiratory Respiratory exam: Decreased breath sounds, Wheezes (at the bases.). negative: Normal lung sounds bilaterally, Accessory muscle use, Rales - Cardiovascular Cardiovascular Exam: Regular rate, Normal rhythm, Normal heart sounds - GI/Abdominal GI/Abdominal exam: Soft, Normal bowel sounds. negative: Tenderness - Extremities Extremities exam: Normal inspection, Full ROM, Normal capillary refill. negative: Tenderness - Back Back exam: Reports: Normal inspection - Neurological Neurological exam: Alert, Normal gait. negative: Abnormal gait, Motor sensory deficit Results - Labs Result Diagrams: 12/22/17 14:15 12/22/17 14:15 Labs Last 24 Hours: Laboratory Results - last 24 hr 12/22/17 12/23/17 22:05 06:28 CK-MB (CK-2) 3.9 H 2.9 Troponin T < 0.010 < 0.010 - Imaging and Cardiology CT scan - chest Status: Report reviewed Chest x-ray Status: Report reviewed, Image reviewed VTE H&P Assessment - Risk for VTE Risk for VTE: Yes Risk Level: Very Low Risk Assessment Date: 12/23/17 Risk Assessment Time: 12:36 VTE Orders Placed or Will Be Placed: Yes Plan - Detailed Diagnosis and Plan (1) Asthmatic bronchitis with acute exacerbation Current Visit: Yes Status: Acute Qualifiers: Asthma severity: unspecified severity Asthma persistence: unspecified Qualified Code(s): J45.901 - Unspecified asthma with (acute) exacerbation Base Code: J45.901 - UNSPECIFIED ASTHMA WITH (ACUTE) EXACERBATION Comment: 04/06: Pt. was admitted for obs on 12/23/17 for cough and SOB. CXR negative. Labs WNL, except for elevatedf CK-MB- serial enzymes ordered and level returned to normal this morning. Chest CT done this morning- report viewed: mild bilateral atelectasis/scar, 9mm goundglass density in posterior RUL. Pt. is recieveing duonebs q4h, 60mg solumedrol daily. Will plan to change solumedrol to PO prednisone for discharge and d/c with nebulizer for home use. Levaquin 500mg daily until 12/24 for total of 5 days therapy. (2) Chest tightness or pressure Current Visit: Yes Status: Acute Base Code: R07.89 - OTHER CHEST PAIN Comment: 12/23/17: Pt. c/o chest tightness/pressure with her cough in ED, she states it is similar to what she expereinces with her asthma and it has improved today. Cardiology was consulted for evaluation on 12/23. Pt. has remained NSR. Serial troponis have remained normal. CK-MB was 4.4 upon admission, now returned to normal. Pt. denies chest pain, headache, change in vision. VS remain stable. (3) Full code status Current Visit: No Status: Acute Base Code: Z78.9 - OTHER SPECIFIED HEALTH STATUS Comment: Pt. is full code status
--- NOTE | 2017-12-23 16:53 | Discharge Summary ---
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?: Not Established Physical Exam - Vital Signs Vital Signs: Vital Signs - Last 24 Hrs Temp Pulse Pulse Resp BP BP Pulse Ox 12/23/17 15:00 97.9 F 93 H 18 121/64 93 L 12/23/17 14:57 88 18 91 L 12/23/17 14:22 102 H 18 98 12/23/17 11:00 97.9 F 86 18 132/69 97 12/23/17 10:00 75 17 98 12/23/17 07:51 16 12/23/17 07:00 97.9 F 71 16 137/71 98 12/23/17 06:05 84 20 97 12/23/17 03:00 98.1 F 70 16 132/74 100 12/22/17 23:11 98.0 F 85 16 128/70 97 12/22/17 21:42 84 20 97 12/22/17 21:00 18 12/22/17 19:03 98.4 F 100 H 18 148/66 94 L 12/22/17 18:10 83 17 97 12/22/17 17:55 95 12/22/17 17:11 98.1 F 106 H 20 132/74 95 - General General Appearance: Alert, Oriented x3, Cooperative, Mild distress (due to JAM) Limitations: No limitations - Head Head exam: Atraumatic, Normocephalic, Normal inspection - Eye Eye exam: Normal appearance, PERRL - ENT Throat exam: Normal inspection - Neck Neck exam: Normal inspection, Full ROM. negative: Tenderness - Respiratory Respiratory exam: Decreased breath sounds (in bases). negative: Normal lung sounds bilaterally, Accessory muscle use, Rales, Respiratory distress - Cardiovascular Cardiovascular Exam: Regular rate, Normal rhythm, Normal heart sounds - GI/Abdominal GI/Abdominal exam: Soft, Normal bowel sounds. negative: Tenderness - Extremities Extremities exam: Normal inspection, Full ROM, Normal capillary refill. negative: Tenderness - Back Back exam: Reports: Normal inspection - Neurological Neurological exam: Alert, Normal gait. negative: Abnormal gait, Motor sensory deficit Hospitalization - Hospitalization Admission Diagnosis: 1. Acute Asthmatic Bronchitis with Hypoxia. - Problem List/Discharge Diagnosis (1) Asthmatic bronchitis with acute exacerbation Current Visit: Yes Status: Acute Discharge Diagnosis: Asthma severity: unspecified severity Asthma persistence: unspecified Qualified Code(s): J45.901 - Unspecified asthma with (acute) exacerbation Base Code: J45.901 - UNSPECIFIED ASTHMA WITH (ACUTE) EXACERBATION Comment: 04/06: Pt. was admitted for obs on 12/23/17 for cough and SOB. CXR negative. Labs WNL, except for elevatedf CK-MB- serial enzymes ordered and level returned to normal this morning. Chest CT done this morning- report viewed: mild bilateral atelectasis/scar, 9mm goundglass density in posterior RUL. Pt. is recieveing duonebs q4h, 60mg solumedrol daily. Will plan to change solumedrol to PO prednisone for discharge and d/c with nebulizer for home use. Levaquin 500mg daily until 12/24 for total of 5 days therapy. (2) Chest tightness or pressure Current Visit: Yes Status: Acute Base Code: R07.89 - OTHER CHEST PAIN Comment: 12/23/17: Pt. c/o chest tightness/pressure with her cough in ED, she states it is similar to what she expereinces with her asthma and it has improved today. Cardiology was consulted for evaluation on 12/23. Pt. has remained NSR. Serial troponis have remained normal. CK-MB was 4.4 upon admission, now returned to normal. Pt. denies chest pain, headache, change in vision. VS remain stable. Pt. seen by Dr. Singh- per Dr. Singh- he does not feel pt. has underlying cardiac problem causing chest tightness/pressure. Pt. has f/u in 4 weeks for baseline cardiac evaluation. (3) Full code status Current Visit: No Status: Acute Base Code: Z78.9 - OTHER SPECIFIED HEALTH STATUS Comment: Pt. is full code status - Disposition Discharge home today, self-care - Hospitalization Course Disposition: Home, Self-Care Hospital Course: Mrs. Miller is a 77 year-old female who presented to the ED on 03/06 with cough, congestion, and SOB that she was experiencing for one day at home. She was recently admitted to [facility] for 2 days with asthma- she was discharged home yesterday morning. She denied fever, chills, vomiting, and chest pain, but she dis complain of chest tightness/pressure that she feels is due to her asthma. Her history includes: mild intermittent asthma with infrequent exacerbations. She denies sick contacts or recent travel and she did receive her seasonal influenza vaccine. Upon admission to the ED, she had a persistent cough and her oxygen saturation was low 90s. Her chest xray showed underlying emphysema, small bilateral effusions, greater on the right. CBC with differential and CMP were unremarkable. Serial troponins were ordered and negative for elevation. Her CK -MB was mildly elevated at 4.4, so she was admitted for observation and cardiology consult for 12/23/17. Plan to continue aggressive pulmonary therapy, panel monitor, repeat cardiac enzymes. 12/23/17: Pt. just returned from her chest CT. She states that her shortness of breath and cough has greatly improved with the nebulizer treatments here and she states that her chest tightness has also improved. Plan for cardiology consult today and will consider d/c this evening if cleared by cardiology. Will plan to d/c home with nebulizer. 12/23/17 1815: Pt. seen by Dr. Singh, he does not feel pt. has underlying cardiac issue causing chest tightness/pressure. Pt. is schedule to f/u with Dr. Singh in 4 weeks for baseline testing. Will discharge home this evening. Summer bernard sent to pt's pharmacy and prescription for machine provided to pt's son earlier today to bring to medical supply store. Procedures: Imaging and X-Rays 12/23/17 08:00 CHEST W CONTRAST [CT] Routine Abnormal Labs: Abnormal Lab Results 12/22/17 Range/Units 22:05 CK-MB (CK-2) 3.9 H (<3.77) ng/mL Condition at Discharge: (2) Stable Discharge Diagnosis: Acute asthmatic bronchitis VTE Discharge VTE Reason For No Overlap Therapy: Not Indicated (Mobility not impaired) Discharge Medications - Discharge Medications Prescriptions: Ipratropium/Albuterol [Duoneb] 3 ml INH RESP.Q4H.WA 7 Days #28 ampul.julien Home Medications: Ambulatory Orders Albuterol Sulfate [Ventolin Hfa] 2 puff INH ASDIR 04/28/16 [Last Taken 12/22/17] Budesonide/Formoterol Fumarate [Symbicort 160-4.5 Mcg Inhaler] 2 puff INH ASDIR 04/28/16 [Last Taken 12/22/17] Prednisone [Prednisone 20Mg] 40 mg PO DAILY 3 Days #6 tab 12/21/17 [Last Taken Unknown] Ipratropium/Albuterol [Duoneb] 3 ml INH RESP.Q4H.WA 7 Days #28 ampul.neb [Last Taken Unknown] Levofloxacin [Levaquin] 500 mg PO DAILY 3 Days #3 tablet 12/23/17 [Last Taken Unknown] Discharge Plan - Discharge Instructions Activity at Discharge: Increase Activity as Tolerated Diet at Discharge: Regular Diet Instructions: Dyspnea (ED) Additional Instructions: Follow up with your primary care provider within 3-5 days of discharge Return to the ED if you experience worsening shortness of breath, fever, cough/ congestion, any chest pain Quality Measures - Quality Measures Quality Measures: Advance Directives, Documentation of Current Medications in Medical Record, Elder Maltreatment Screen and Follow-Up Plan, Screening for High Blood Pressure and F/U Documented - Current Medications Quality Measure: Measure #130: Documentation of Current Medications Documentation of Current Medications: <Current Medications Documented/Reviewed> [G5776] - Blood Pressure Screening Quality Measure: Screening for High Blood Pressure and Follow-Up Documented Does Patient Have Any of the Following: No, Active Dx of HTN Blood Pressure Classification: Pre-Hypertensive BP Reading Systolic Measurement: 127 Diastolic Measurement: 73 Screening for High Blood Pressure: < Pre-Hypertensive BP, F/U Documented > [ G8950] Pre-Hypertensive Follow-up Interventions: Follow-up with rescreen every year., Referral to alternative/primary care provider. - Advance Directives Quality Measure: Measure #47: Care Plan Advance Directives Established: No Advance Directives Information Provided To Patient: No Advance Directives on File: No Living Will: No Power of Committee Member: Yes Power of Committee Member Name: OLGA LIDIA GONCALVES Advance Care Planning: <Care Plan/Decision Maker Documented; Discussed & Documented> [2433F] - Elder Abuse Suspicion Index Screening: Elder Abuse Suspicion Index Screening Rely on people for bathing, dressing, shopping, banking, etc: No Prevented from getting food, clothes, medication, etc: No Made to feel shamed or threatened by someone: No Forced to sign papers or use money against will: No Feel afraid, touched in ways not wanted or hurt physically: No Poor eye contact, withdrawn, malnourished, cuts or bruises: No Screening Result: Negative result EASI Reference Information: Ramon CHAMBERS, Juan Watson, Oriana Ovalle, Sofia Santamaria.Development and validation of a tool to assist physicians identification of elder abuse: The Elder Abuse Suspicion Index (EASI ). Journal of Elder Abuse and Neglect, 2008; 20 (3): 276-300. - Elder Maltreatment Screen Quality Measures: Elder Maltreatment Screen and Follow-Up Plan Elder Maltreatment Screen: <Negative, No Follow-Up Plan Required> [G8720]
[2017-12-24] MEDS ORDERED: LEVOFLOXACIN 500 MG TABLET PO SCH (06:00)
--- NOTE | 2017-12-24 09:02 | Medical Records Consult ---
DATE OF CONSULTATION: 12/23/2017 REASON FOR CONSULTATION: Chest pain. Ms. Miller is a delightful 77-year-old female who has a history of reactive airways disease. The patient presented with complaints of cough and shortness of breath on 12/22/2017. This was a presentation after she had already been in the hospital for exacerbation of asthma. The patient says that she had been coughing nonstop and that is why she decided to come to the Emergency Department. The patient doesn't have any history of coronary artery disease. She recently was in [place] and since that time she has been having coughing spells. The patient also described chest pressure that lead to cardiology consultation. The patient describes the chest pressure as a sensation that is felt when she coughs or after deep breathing. She reports a 2-3/10 in severity and she says that she feels that this is related to her coughing. Patient denies any pedal edema, orthopnea, or paroxysmal nocturnal dyspnea prior to this presentation. The patient is very active and she plays golf as well and she has been able to do all of her activities without any issues. PAST MEDICAL HISTORY: Significant for reactive airways disease. ALLERGIES: No known drug allergies. HOME MEDICATIONS: The patient has been on inhalers at home and during the hospitalization she has been on Levothyroxine as well as on Prednisone 20 mg daily. REVIEW OF SYSTEMS: The patient denies any fevers and chills, but complains of the productive cough going on for over a week. Denies any bleeding coliplications. Denies any history of thyroid or related issues. Denies any anxiety or depression. PHYSICAL EXAMINATION: The patient's vital signs shows a temperature of 97.9 degrees of Fahrenheit with a pulse rate of 75 b.p.m., respiratory rate of 17 and a blood pressure of 137/71 mmHg. Oxygen saturation was 98%. The patient is sitting comfortably in bed not in any apparent distress. HEENT: She is atraumatic. Pupils are equal and reactive to the light. The extraocular muscles are intact. NECK: Supple. No organomegaly. CVS: On CVS examination she has normal S1 and S2. RESPIRATORY: Reveals good air entry bilaterally with no crackles. There are scattered phases. NEUROLOGICAL: Nonfocal. LABORATORY DATA: Shows a sodium of 140, potassium of 4.0, chloride of 100, CO2 of 31, BUN of 18, creatinine of 0.5, blood glucose of 109, white count is 9.1, hemoglobin is 14.3, hematocrit is 43.9, platelet count is 271, Troponin's have been less than 0.10 times three. CKMB has been noted within normal limits as well. CT of the chest shows a 9 mm ground glass density in the posterior right upper lobe and the patient should have repeat imaging within six to twelve months as recommended by the radiologist. Her ECG shows sinus rhythm with no ST or T-wave changes. ASSESSMENT/PLAN: 1. CHEST PAIN. THE PATIENT'S CHEST PAIN IS RELATIVE TO THE PICC LINE MOST LIKELY MUSCULOSKELETAL FROM THE DICTATED COUGHING. THE PATIENT IS COMPLAINING OF CHEST HEAVINESS THAT COULD ALSO BE RELATED TO HER REACTIVE AIRWAY DISEASE WELL. SINCE HER CARDIAC BIOMARKERS ARE WITHIN NORMAL LIMITS. HER ECG DOES NOT SHOW ANY ACUTE CHANGES. I DO NOT FEEL THE NEED FOR ANY FURTHER CARDIAC WORK-UP AT THIS TIME, HOWEVER, ONE HER PNEUMONIA IS DISSOLVED SHE SHOULD HAVE A STRESS TEST FOR FURTHER EVALUATION AND SHE WILL BE SCHEDULED TO FOLLOW-UP UP WITH ME AN PATIENT IN THREE TO FOUR WEEKS. THIS LINE WAS EXPLAINED TO THE PATIENT WELL THE PRIMARY TEAM. 2. NO FURTHER CARDIAC WORK-UP NEEDED AT THIS TIME. Please do not hesitate to call me if there are any questions or concerns. Thank you very much for this. JOB NUMBER: [id number] MTDD
--- NOTE | 2017-12-24 22:04 | CT SCAN REPORT ---
EXAM: CT SCAN CHEST W CONTRAST HISTORY: SHORTNESS OF BREATH. TECHNIQUE: CT chest performed following IV administration of 100 mL of Omnipaque-300 contrast. COMPARISON: Chest x-ray 12/22/17. FINDINGS: The visualized thyroid gland enhances normally. The mediastinal vasculature enhances normally. No mediastinal or hilar adenopathy. Mild ectasia of the thoracic aorta. The heart and pericardium are otherwise unremarkable. Limited evaluation of the upper abdomen shows postcholecystectomy changes. Osseous structures are grossly intact. No pneumothorax. Minor biapical pleural thickening. Ground-glass opacity in the medial right upper lobe. Scarring in each lung base. Lungs are otherwise clear. IMPRESSION: GROUND-GLASS OPACITY IN THE MEDIAL RIGHT UPPER LOBE LIKELY REFLECTS MINOR PNEUMONITIS. COULD CONSIDER FOLLOW-UP FOLLOWING APPROPRIATE THERAPY TO ENSURE STABILITY OR RESOLUTION. MINOR SCARRING IN THE LUNG BASES BILATERALLY. JOB NUMBER: [id number] MTDD
== END 2017-12-23 19:02 | disposition home or self-care (01) ==
LOC: ER 13:48 → MEDSURG 17:01
PROVIDERS: ADMIT Internal Medicine; ATTEND Internal Medicine
DX: J44.1 Chronic obstructive pulmonary disease with (acute) exacerbation (principal); R09.02 Hypoxemia; R05 Cough; J43.9 Emphysema, unspecified; R07.89 Other chest pain; R06.02 Shortness of breath
CPT/HCPCS: 99285 ×2; 96374; 82550; 85730; 85610; 82553 ×2; 80048; 84484 ×2; 85379; 85027; 71046; 71260; 94640 ×3; 94761 ×2; 93005; G0378 ×2; Q9967; 99220; J2920; J2930